=== PATIENT | female | born 1985 | race Two or more races ===

== ENCOUNTER 2023-11-29 17:49 | Emergency (ER) | payer MEDICAID ==
[~2023-11-29] VITALS: Ht 172.7 cm; Wt 105.0 kg
[2023-11-29 17:55] VITALS: TEMP 98.6; O2SAT 98
[2023-11-29] MEDS ORDERED: IBUP-2029 MT (19:07)
[2023-11-29 19:37] VITALS: BP 115/67; PULSE 97; RESP 19
== END 2023-11-29 20:01 | disposition home or self-care (01) ==
LOC: ER 17:49
DX: S76.101A Unspecified injury of right quadriceps muscle, fascia and tendon, initial encounter (principal); X58.XXXA Exposure to other specified factors, initial encounter; Y93.89 Activity, other specified; Y92.89 Other specified places as the place of occurrence of the external cause; Y99.8 Other external cause status
CPT/HCPCS: 73560; 99283; Z7610